=== PATIENT | male | born 2000 | race African-American/Black ===

== ENCOUNTER 2018-10-23 12:48 | Emergency (ER) | payer SELFPAY ==
[~2018-10-23] VITALS: Ht 162.6 cm; Wt 61.0 kg
[2018-10-23] MEDS ORDERED: TETANUS, DIPHTHERIA, PERTUSSIS VAC/PF 0.5ML (>7YR OLD) IM ONE (14:00)
[2018-10-23] MEDS ORDERED: IBUPROFEN 600MG TABLET PO ONE (14:00)
[2018-10-23] MEDS ORDERED: LIDOCAINE HCL/PF 1% 10 MG/ML 5ML VIAL IJ ONE (14:00)
[2018-10-23] MEDS ORDERED: BACITRACIN ZINC OINT UDPKT TOP ONE (14:00)
[2018-10-23 16:50] VITALS: BP 120/66
== END 2018-10-23 17:01 | disposition home or self-care (01) ==
LOC: ER 12:48
DX: S61.211A Laceration without foreign body of left index finger without damage to nail, initial encounter (principal); J45.909 Unspecified asthma, uncomplicated; W26.8XXA Contact with other sharp object(s), not elsewhere classified, initial encounter; Y93.89 Activity, other specified; Y92.89 Other specified places as the place of occurrence of the external cause; Y99.8 Other external cause status
CPT/HCPCS: 12002; 90471; 90715; 99283; A4217; J3490; Z7610

== ENCOUNTER 2023-06-28 20:26 | Emergency (ER) | payer OTHER ==
[~2023-06-28] VITALS: Ht 172.7 cm; Wt 68.4 kg
[2023-06-28 20:35] VITALS: BP 124/80; PULSE 69; RESP 16; TEMP 98; O2SAT 99
[2023-06-28 21:24] LABS: CLARITY URINE CLEAR (CLEAR); COLOR URINE YELLOW (YELLOW); GLUCOSE URINE NEGATIVE (NEGATIVE); KETONES URINE NEGATIVE (NEGATIVE); LEUKOCYTE ESTERASE URINE NEGATIVE (NEGATIVE); NITRITE URINE NEGATIVE (NEGATIVE); OCCULT BLOOD URINE NEGATIVE (NEGATIVE); PROTEIN URINE NEGATIVE (NEGATIVE); SPECIFIC GRAVITY URINE 1.018 (1.005-1.030)
[2023-06-28] MEDS ORDERED: DOXY100T2 MT (22:14)
[2023-06-28] MEDS ORDERED: CEFTRIAXONE SODIUM 500MG VIAL IM ONE (22:15)
[2023-07-01 04:10] LABS: CHLAMYDIA TRACHOMATIS NAA Negative (Negative); NEISSERIA GONORRHOEAE NAA Negative (Negative)
== END 2023-06-28 22:20 | disposition home or self-care (01) ==
LOC: ER 20:26
DX: Z11.3 Encounter for screening for infections with a predominantly sexual mode of transmission (principal); J45.909 Unspecified asthma, uncomplicated
CPT/HCPCS: 81003; 86592; 87491; 87591; 99283